=== PATIENT | male | born 1950 | race Caucasian/White ===

== ENCOUNTER 2019-08-15 14:56 | Observation (INO) ==
[2019-08-15 16:04] LABS: Basophils % 0.1 %; Eosinophils # 0.1 K/mcL (0.0-0.6); Eosinophils % 0.3 %; Hematocrit 45.8 % (37.5-50.1); Hemoglobin 15.9 g/dL (12.9-16.9); Immature Granulocytes % 0.3 % (0-4); Lymphocytes # 0.8 K/mcL (0.6-4.6); Mean Corpuscular HGB Conc 34.7 g/dL (31.6-35.5); Mean Corpuscular Hemoglobin 31.5 pg (28.0-33.3); Mean Corpuscular Volume 90.7 fL (83.0-100.0); Mean Platelet Volume 11.3 fL (9.4-12.4); Monocytes # 0.9 K/mcL (0.0-1.3); Monocytes % 5.9 %; Neutrophils # 13.4 K/mcL (1.6-8.9); Platelet Count 224 K/mcL (140-400); Red Blood Count 5.05 M/mcL (4.19-5.50); Red Cell Distribution Width 12.1 % (11.5-14.5); Segmented Neutrophils % 88.4 %; White Blood Count 15.1 K/mcL (4.3-11.1)
[2019-08-15 16:18] LABS: INR 1.2; Prothrombin Time 13.1 Seconds (9.4-12.1)
[2019-08-15 16:20] LABS: Activated Partial Thrombo Time 30.8 Seconds (26.0-36.0)
[2019-08-15 16:25] LABS: Alanine Aminotransferase 19 Units/L (7-52); Albumin 4.8 g/dL (3.5-5.7); Albumin/Globulin Ratio 1.6 (1.1-2.2); Alkaline Phosphatase 103 Units/L (34-104); Aspartate Amino Transferase 18 Units/L (13-39); BUN/Creatinine Ratio 14 (6-26); Bilirubin,Direct 0.2 mg/dL (0.0-0.2); Bilirubin,Indirect 0.9 mg/dL (0.0-1.0); Bilirubin,Total 1.1 mg/dL (0.3-1.0); Blood Urea Nitrogen 12 mg/dL (8-23); Calcium 9.9 mg/dL (8.6-10.3); Carbon Dioxide 25 mEq/L (23-29); Chloride 99 mEq/L (98-107); Glucose 130 mg/dL (70-105); Lipase 12 Units/L (11-82); Osmolality,Calculated 276 (280-300); Potassium 3.5 mEq/L (3.5-5.1); Sodium 132 mEq/L (136-145); Total Protein 7.8 g/dL (6.4-8.9); Troponin I < 0.03 ng/mL (< 0.04); eGFR For African Americans > 60 (> 60); eGFR For Non-African Americans > 60 (> 60)
[2019-08-15 16:38] LABS: Thyroid Stimulating Hormone 0.425 mcIU/mL (0.340-5.600)
[2019-08-15] MEDS ORDERED: 0.9 % Sodium Chloride 1,000 ML IVC ONE (16:54)
[2019-08-15] MEDS ORDERED: *HR* FentaNYL (PF) 100 MCG/2 ML VIAL IVP ONE (17:13)
[2019-08-15] MEDS ORDERED: cefOXitin 2,000 MG in Water for inj. (sterile) 20 ML IVP ONE (18:59)
[2019-08-15] MEDS ORDERED: cefOXitin 2,000 MG in 0.9 % Sodium Chloride Mini Bag 100 ML IVPB STA ×3 (19:01→19:47)
[2019-08-15] MEDS ORDERED: cefOXitin 2,000 MG in Water for inj. (sterile) 20 ML IVP STA (19:58)
[2019-08-15] MEDS ORDERED: CefOXitin 1,000 MG VIAL ONE (20:09)
[2019-08-15] MEDS ORDERED: *HR* Midazolam HCl 2 MG/2 ML VIAL ONE (21:07)
[2019-08-15] MEDS ORDERED: *HR* FentaNYL (PF) 100 MCG/2 ML VIAL ONE (21:07)
[2019-08-15] MEDS ORDERED: Lidocaine -MPF 2% 2 ML VIAL ONE (21:37)
[2019-08-15] MEDS ORDERED: *HR* Succinylcholine 200 MG/10 ML VIAL IVP ONE (21:41)
[2019-08-15] MEDS ORDERED: *HR* Propofol 200 MG/20 ML VIAL IVP ONE (21:41)
[2019-08-15] MEDS ORDERED: *HR* Rocuronium Bromide 50 MG/5 ML VIAL ONE (21:41)
[2019-08-15] MEDS ORDERED: Acetaminophen IV 1,000 MG/100 ML BAG ONE (21:41)
[2019-08-15] MEDS ORDERED: Isovue-300 50ML VIAL ONE (21:41)
[2019-08-15] MEDS ORDERED: Famotidine 20 MG/2 ML VIAL ONE (21:41)
[2019-08-15] MEDS ORDERED: *HR* HYDROmorphone 2 MG TABLET PO PRN (22:05)
[2019-08-15] MEDS ORDERED: Acetaminophen IV 1,000 MG/100 ML BAG IVPB ONE (22:05)
[2019-08-15] MEDS ORDERED: *HR* HYDROmorphone PF 0.5 MG/0.5 ML SYRINGE IVP PRN (22:05)
[2019-08-15] MEDS ORDERED: *HR* Labetalol 20 MG/4 ML SYRINGE IVP PRN (22:05)
[2019-08-15] MEDS ORDERED: *HR* Promethazine 25 MG/ML VIAL IVP PRN (22:05)
[2019-08-15] MEDS ORDERED: *HR* OxyCODONE Immed Rel 5 MG TABLET PO PRN (22:05)
[2019-08-15] MEDS ORDERED: Famotidine 20 MG/2 ML VIAL IVP ONE (22:05)
[2019-08-15] MEDS ORDERED: *HR* Magnesium Sulfate 1 GM/2 ML VIAL ONE (22:18)
[2019-08-15] MEDS ORDERED: EPHEDrine 50 MG/ML VIAL ONE ×2 (22:31→23:24)
[2019-08-15] MEDS ORDERED: *HR* PHENYLEPHRINE 1,000 MCG/10 ML SYRINGE IVP ONE (22:31)
[2019-08-15] MEDS ORDERED: Ondansetron 4 MG/2 ML VIAL ONE (22:47)
[2019-08-15] MEDS ORDERED: Neostigmine Methylsulfate 3 MG/3 ML SYRINGE ONE (22:47)
[2019-08-15] MEDS ORDERED: Dexamethasone 4 MG/ML VIAL ONE (22:47)
[2019-08-15] MEDS ORDERED: *HR* HYDROMORPHONE 2 MG/ML VIAL ONE (23:01)
[2019-08-15] MEDS ORDERED: Glycopyrrolate 0.2 MG/ML VIAL ONE (23:24)
[2019-08-16] MEDS ORDERED: Ringers Solution, Lactated 1,000 ML ONE (00:17)
[2019-08-16] MEDS ORDERED: 0.9 % Sodium Chloride 1,000 ML IVC SCH (01:26)
[2019-08-16] MEDS ORDERED: Ondansetron 4 MG/2 ML VIAL IVP PRN (01:26)
[2019-08-16] MEDS ORDERED: *HR* Metoprolol 5 MG/5 ML VIAL IVP PRN (01:26)
[2019-08-16] MEDS: cefOXitin 2,000 MG in Water for inj. (sterile) 20 ML IVP SCH ×2 (02:28→08:00)
[2019-08-16] MEDS ORDERED: *HR* Heparin 5,000 UNIT/ML VIAL SQ SCH (06:00)
[2019-08-16 06:37] LABS: Basophils % 0.1 %; Hematocrit 41.7 % (37.5-50.1); Immature Granulocytes % 0.5 % (0-4); Lymphocytes # 0.4 K/mcL (0.6-4.6); Lymphocytes % 2.9 %; Mean Corpuscular HGB Conc 34.3 g/dL (31.6-35.5); Mean Corpuscular Hemoglobin 31.7 pg (28.0-33.3); Mean Corpuscular Volume 92.5 fL (83.0-100.0); Mean Platelet Volume 11.1 fL (9.4-12.4); Monocytes # 0.6 K/mcL (0.0-1.3); Monocytes % 4.8 %; Neutrophils # 11.9 K/mcL (1.6-8.9); Platelet Count 194 K/mcL (140-400); Red Blood Count 4.51 M/mcL (4.19-5.50); Red Cell Distribution Width 12.5 % (11.5-14.5); Segmented Neutrophils % 91.7 %
[2019-08-16 06:39] LABS: Hemoglobin 14.3 g/dL (12.9-16.9)
[2019-08-16 06:56] LABS: BUN/Creatinine Ratio 12 (6-26); Blood Urea Nitrogen 11 mg/dL (8-23); Calcium 8.7 mg/dL (8.6-10.3); Carbon Dioxide 23 mEq/L (23-29); Chloride 100 mEq/L (98-107); Glucose 155 mg/dL (70-105); Osmolality,Calculated 277 (280-300); Potassium 4.2 mEq/L (3.5-5.1); Sodium 132 mEq/L (136-145); eGFR For African Americans > 60 (> 60); eGFR For Non-African Americans > 60 (> 60)
[2019-08-16] MEDS: *HR* OxyCODONE/APAP 5/325 TABLET PO PRN ×2 (07:59→13:47)
[2019-08-16] MEDS ORDERED: Pantoprazole 40 MG VIAL IVP SCH (09:00)
[2019-08-16 12:01] VITALS: BP 125/82
== END 2019-08-16 13:56 | disposition home or self-care (01) ==
LOC: EMEROOARM 14:56 → 3ANU 14:56
PROVIDERS: ADMIT Surgery; ATTEND Surgery